=== PATIENT | male | born 1995 | race Caucasian/White ===

== ENCOUNTER 2018-06-08 18:36 | Emergency (ER) | payer MEDICARE, OTHER ==
[~2018-06-08] VITALS: Ht 180.3 cm; Wt 104.3 kg
[2018-06-08 18:40] VITALS: BP 151/76
--- NOTE | 2018-06-08 19:51 | PHYS DOC ---
Past Medical History Past Medical History: Other Additional Past Medical Histor: TBIk, tremors, explosive compulsive disorder Past Surgical History: Other Additional Past Surgical Histo: BRAIN SURGERY-2002 Alcohol Use: None Drug Use: None Adult General Chief Complaint Chief Complaint: LOWER EXT PAIN HPI HPI 22-year-old male presents to ER for complaints of right ankle and foot pain following an injury yesterday. Patient reports he was walking when he twisted his ankle and foot. Patient denies falling all to the ground. Patient reports he has had swelling and pain since the injury in his right lateral ankle into his foot. Patient took ibuprofen yesterday for pain denies any huom-ugb-[id number] medications today. Patient denies any other injuries. Patient states he has been ambulatory without assistive device. Review of Systems Review of Systems Constitutional: Denies fever. Denies head/neck/back pain. Musculoskeletal: Reports rt ankle/foot pain- reporting only injury Integument: Denies abrasions/bruising Neurologic: Denies focal weakness or sensory changes [] All other systems were reviewed and found to be within normal limits, except as documented in this note. Current Medications Current Medications Current Medications Medications (Trade) Dose Ordered Sig/Corinne Start Time Stop Time Status Last Admin Dose Admin Ibuprofen (Motrin) 600 mg 1X ONCE 06/08/18 20:15 06/08/18 20:16 DC 06/08/18 19:55 600 MG Allergies Allergies Allergies Coded Allergies Type Severity Reaction Last Updated Verified divalproex sodium Allergy Unknown 11/24/14 Yes Physical Exam Physical Exam Constitutional: Well developed, well nourished, no acute distress, non-toxic appearance. [] HENT: Normocephalic, atraumatic Eyes: Pupils equal, conjunctiva normal, no discharge. [] Neck: Normal range of motion, no tenderness, supple Cardiovascular: Heart rate regular Lungs & Thorax: Resp. equal/nonlabored Skin: Warm, dry Back: No tenderness, full ROM Extremities: No cyanosis. 2+ dorsalis pedis/posterior tibial rt LE. Tender to palp. rt lateral malleolus into dorsal surface of rt foot. No calcaneus tenderness. Pt has decreased ROM of rt ankle. Swelling without ecchymosis dorsal surface of rt lateral foot Neurologic: Alert and oriented X 3, normal motor function, normal sensory function, no focal deficits noted. [] Psychologic: Affect normal, judgement normal, mood normal. [] Current Patient Data Vital Signs Vital Signs Date Time Temp Pulse Resp B/P (MAP) Pulse Ox O2 Delivery O2 Flow Rate FiO2 06/08/18 18:40 97.6 86 22 151/76 (101) 98 Room Air 97.6 EKG EKG [] Radiology/Procedures Radiology/Procedures PROCEDURE: ANKLE RIGHT 3V Right ankle 3 views 06/08/2018. Reason for exam: Pain after injury yesterday. No fracture or dislocation is seen at the ankle. There is no apparent joint narrowing. IMPRESSION: No acute findings at the ankle. Right foot 3 views: There is a transverse fracture of the proximal fifth metatarsal reaching the proximal articular surface. There is minimal displacement. No other fracture or dislocation is seen. IMPRESSION: Fifth metatarsal fracture. Electronically signed by: Margarito Nguyen Jr., MD (06/08/2018 8:24 PM) [facility] DICTATED and SIGNED BY: MARGARITO NGUYEN Jr, MD DATE: 06/08/182021 Course & Med Decision Making Course & Med Decision Making Pertinent Imaging studies reviewed. (See chart for details) 2030: Discussed x-ray results with patient and caseworker protective services at bedside with ankle x-ray showing no acute findings for fracture or dislocation. Right foot x- ray with report of "transverse fracture of the proximal fifth metatarsal reaching the proximal articular surface". Discussed plans for Jose wrap and postop shoe to right foot. Crutches were discussed however patient is not wanting to use crutches. Patient has been ambulatory since injury yesterday without assistive device. Patient remains neuro and vascular intact in right lower extremity. Patient was given dose of ibuprofen while in the ER. Will provide referral for orthopedic doctor with discharge paperwork and patient and structural biologist was advised on need to call tomorrow to schedule an appointment for follow-up this week. Education provided on signs and symptoms to return to ER for an discharge instructions were discussed. At time of discussion patient was in no visible distress. Dragon Disclaimer Dragon Disclaimer This electronic medical record was generated, in whole or in part, using a voice recognition dictation system. Departure Departure Impression: Primary Impression: Foot fracture, right Additional Impression: Right ankle injury Disposition: HOME, SELF-CARE Condition: STABLE Referrals: CLAUDIA HICKEY MD (PCP) Patient Instructions: Ankle Sprain, Elastic Bandage and RICE, Foot Fracture Additional Instructions: Tylenol and/or ibuprofen as needed for pain relief as directed on container. Call as soon as possible and schedule follow-up with orthopedic doctor for further care/treatment. Dr. Sanchez [phone]. Problem Qualifiers SHANIKA MORRISSEY APRN Jun 08, 2018 19:51
[2018-06-08] MEDS ORDERED: IBUPROFEN 600 MG TABLET. PO ONE (20:15)
--- NOTE | 2018-06-08 20:28 | RAD ---
Right ankle 3 views 06/08/2018. Reason for exam: Pain after injury yesterday. No fracture or dislocation is seen at the ankle. There is no apparent joint narrowing. IMPRESSION: No acute findings at the ankle. Right foot 3 views: There is a transverse fracture of the proximal fifth metatarsal reaching the proximal articular surface. There is minimal displacement. No other fracture or dislocation is seen. IMPRESSION: Fifth metatarsal fracture. Electronically signed by: Cale Nguyen Jr., MD (06/08/2018 8:24 PM) [facility]
--- NOTE | 2018-06-08 20:28 | RAD ---
Right ankle 3 views 06/08/2018. Reason for exam: Pain after injury yesterday. No fracture or dislocation is seen at the ankle. There is no apparent joint narrowing. IMPRESSION: No acute findings at the ankle. Right foot 3 views: There is a transverse fracture of the proximal fifth metatarsal reaching the proximal articular surface. There is minimal displacement. No other fracture or dislocation is seen. IMPRESSION: Fifth metatarsal fracture. Electronically signed by: Cale Nguyen Jr., MD (06/08/2018 8:24 PM) [facility]
[2018-12-19] MEDS ORDERED: NAPR-514 PO (14:43)
[2018-12-19] MEDS ORDERED: PENI500T PO (14:43)
== END 2018-06-08 21:07 | disposition home or self-care (01) ==
LOC: ER 18:36
DX: S92.351A Displaced fracture of fifth metatarsal bone, right foot, initial encounter for closed fracture (principal); S99.911A Unspecified injury of right ankle, initial encounter; Z88.8 Allergy status to other drugs, medicaments and biological substances; X50.1XXA Overexertion from prolonged static or awkward postures, initial encounter; Y93.89 Activity, other specified; Y92.89 Other specified places as the place of occurrence of the external cause; Y99.8 Other external cause status
CPT/HCPCS: 73610; 73630; 99283

== ENCOUNTER → 2019-08-06 | Outpatient (CLI) | payer MEDICARE, OTHER ==
[2018-12-19 14:25] VITALS: BP 136/74
[~2019-08-06] MED LIST: NAPR-514 PO; PENI500T PO
--- NOTE | 2019-08-06 13:21 | KCIC ---
AP and Lateral Views of the Chest 08/06/2019 12:00 AM Indication: Dyspnea Comparison: None Findings: There is no focal consolidation or infiltrate identified. The cardiomediastinal silhouette is within normal limits. There is no evidence of pneumothorax or pleural effusion. No acute osseous abnormalities are identified. Impression: No evidence of acute cardiopulmonary process. Electronically signed by: Aroldo Garland MD (08/06/2019 1:18 PM) [id number]
== END | disposition home or self-care (01) ==
LOC: KCIC 09:45
PROVIDERS: ATTEND Family Medicine
DX: R06.00 Dyspnea, unspecified (principal)
CPT/HCPCS: 71046

== ENCOUNTER → 2019-09-15 | Outpatient (CLI) | payer MEDICARE, OTHER ==
[2018-12-19 14:25] VITALS: BP 136/74
[~2019-09-15] MED LIST changes: +ZOLPIDEM 5 MG TABLET. PO ONE
--- NOTE | 2019-09-16 18:12 | SLEEP ---
DATE OF STUDY: 09/16/2019 REFERRING PHYSICIAN: Ese Rascon MD PRIMARY CARE PHYSICIAN: Yifan Peterson MD The patient is a 24-year-old who weighs 254 pounds with a BMI of 38. The patient's [place] score was 10. The patient underwent split night study performed at [facility]. During the night study, the patient spent 446 minutes in bed and slept for 392 minutes with a sleep efficiency of 88%. Sleep latency was 16 minutes with a REM latency of 178 minutes. Sleep architecture showed normal stage 1 and stage 2 sleep, increased slow wave and normal REM sleep. During the initial diagnostic portion of the study, the patient slept for 77 minutes. During that time, there were 1 obstructive apnea, 4 mixed apneas, 1 central apnea and 54 hypopneas. The patient's AHI was 47 per hour with a supine AHI of 47 per hour. REM sleep was not seen during the diagnostic portion. EKG monitoring revealed an average heart rate of 77 beats per minute. No sustained arrhythmias observed. No clinically significant PLM seen. Nocturnal oximetry study revealed an average oxygen saturation of 88% with the lowest of 81%. 35% of the time, oxygen saturation remained between 80% and 89%. The patient met the criteria for CPAP initiation. It was started at 7 cm water and titrated up to 9 cm water. At the final pressure, the patient slept for 257 minutes including supine and REM sleep. The patient's AHI was reduced to 1 per hour and oxygen saturation remained above 90%. The patient used a small sized full face mask. IMPRESSION: 1. Severe obstructive sleep apnea at an AHI of 47 per hour. 2. Nocturnal hypoxia secondary to obstructive sleep apnea, but resolved with CPAP. 3. No clinically significant periodic limb movements. RECOMMENDATIONS: 1. CPAP at 9 cm water completely eliminated the patient's sleep apnea and should be used on a nightly basis. 2. Follow up in 4-6 weeks to assess compliance with CPAP and to document clinical improvement. 3. Weight loss is strongly advised. 4. Avoid [employer] APPRENTICE depressants. 5. Cautioned regarding driving until symptoms of sleep apnea resolve with the use of CPAP. ALONSO CHURCH MD DR: CHARLES/melchor JOB#: [id number] / [id number] ESE Preston MD, TERRY MD
== END | disposition home or self-care (01) ==
LOC: SLPLAB 19:22
PROVIDERS: ATTEND Internal Medicine Pulmonary Disease
DX: G47.33 Obstructive sleep apnea (adult) (pediatric) (principal); R09.02 Hypoxemia
CPT/HCPCS: 95810

== ENCOUNTER → 2019-10-06 | Outpatient (CLI) | payer MEDICARE, OTHER ==
[2018-12-19 14:25] VITALS: BP 136/74
[~2019-10-06] MED LIST changes: -ZOLPIDEM 5 MG TABLET. PO ONE
--- NOTE | 2019-10-06 10:02 | CARD ---
MR#: [id number] Date of Study: 10/06/2019 Ordering Physician: CLAUDIA HICKEY, Referring Physician: CLAUDIA HICKEY, Tech: Magalys Hernandez [facility] APPROVED REPORT EXAM: Two-dimensional and M-mode echocardiogram with Doppler and color Doppler. Other Information Quality : Good INDICATION Dyspnea 2D DIMENSIONS RVDd2.5 (2.9-3.5cm)Left Atrium(2D)3.8 (1.6-4.0cm) IVSd1.3 (0.7-1.1cm)Aortic Root(2D)2.8 (2.0-3.7cm) LVDd5.0 (3.9-5.9cm)LVOT Diameter2.2 (1.8-2.4cm) PWd1.2 (0.7-1.1cm)LVDs3.8 (2.5-4.0cm) FS (%) 23.3 %SV53.8 ml LVEF(%)46.4 (>50%) Aortic Valve AoV Peak Hernando.138.9cm/sAoV VTI25.6cm AO Peak GR.7.7mmHgLVOT Peak Hernando.109.9cm/s AO Mean GR.4mmHgAVA (VMAX)2.87cm2 DARIO (VTI)3.10cm2 Mitral Valve MV E Unewljnq06.6cm/sMV DECEL XJML686ep MV A Mutjhyyt60.3cm/sE/A Ratio2.2 Tricuspid Valve TR P. Yefrhvcg777jx/sRAP NIDIXYES2qpCy TR Peak Gr.37amOnTOZC98kmDr Pulmonary Vein S1 Odwxhbno16.6cm/sD2 Ckpaqhod75.0cm/s LEFT VENTRICLE The left ventricle is normal size. There is mild concentric left ventricular hypertrophy. Left ventri taisha systolic function is normal. The Ejection Fraction is 55%. There is normal LV segmental wall dylan on. RIGHT VENTRICLE The right ventricle is normal size. The right ventricular systolic function is normal. ATRIA The left atrium size is normal. The right atrium size is normal. The interatrial septum is intact wit h no evidence for an atrial septal defect or patent foramen ovale as noted on 2-D or Doppler imaging. AORTIC VALVE The aortic valve is normal in structure and function. Doppler and Color Flow revealed no significant aortic regurgitation. There is no significant aortic valvular stenosis. MITRAL VALVE The mitral valve is normal in structure and function. There is no evidence of mitral valve prolapse. There is no mitral valve stenosis. Doppler and Color Flow revealed no mitral valve regurgitation note d. TRICUSPID VALVE The tricuspid valve is normal in structure and function. Doppler and Color Flow revealed trace tricus pid regurgitation. There is mild pulmonary hypertension. The PA pressure was estimated at 35 mmHg. Th ere is no tricuspid valve stenosis. PULMONIC VALVE The pulmonic valve is not well visualized. Doppler and Color Flow revealed no pulmonic valvular regur gitation. There is no pulmonic valvular stenosis. GREAT VESSELS The aortic root is normal in size. The ascending aorta is not well seen. The IVC is normal in size an d collapses >50% with inspiration. PERICARDIAL EFFUSION There is no evidence of significant pericardial effusion. Critical Notification Critical Value: No <Conclusion> Left ventricle systolic function is normal. The Ejection Fraction is 55%. There is normal LV segmental wall motion. Doppler and Color Flow revealed trace tricuspid regurgitation. The PA pressure was estimated at 35 mmHg. There is no evidence of significant pericardial effusion. Signed by : [facility], Electronically Approved : 10/06/2019 10:01:40
== END | disposition home or self-care (01) ==
LOC: ECHO 08:55
PROVIDERS: ATTEND Family Medicine
DX: I51.7 Cardiomegaly (principal); I27.20 Pulmonary hypertension, unspecified
CPT/HCPCS: 93306

== ENCOUNTER 2020-08-19 15:13 | Emergency (ER) | payer MEDICARE, OTHER ==
[~2020-08-19] VITALS: Ht 167.6 cm; Wt 109.0 kg
[2020-08-19 15:52] VITALS: BP 139/79
[2020-08-19] MEDS ORDERED: IBUPROFEN 200 MG TABLET. PO ONE (16:00)
--- NOTE | 2020-08-19 16:05 | RAD ---
XR HAND_LEFT 3 VIEWS Clinical Indication: Reason: injury left hand, punched wall / Spl. Instructions: / History: Comparison: None. Findings: There is acute traumatic fracture of the distal neck of the fifth metacarpal. The distal fracture fra gment demonstrates minimal volar angulation. There is mild soft tissue swelling. There is lucency at the tip of the fourth distal tuft. Correlate to any point tenderness. Finding may be subacute nondisplaced fracture or congenital variant. There is no dislocation. There is negative ulnar variance. Mineralization is normal. IMPRESSION: Acute traumatic boxer's fracture. Electronically signed by: Pavan Malhotra MD (08/19/2020 4:02 PM) [id number]
[2020-08-19] MEDS ORDERED: HYDR-2761 PO (16:32)
[2020-08-19] MEDS ORDERED: IBUP-1007 PO (16:32)
--- NOTE | 2020-08-19 16:32 | PHYS DOC ---
Past Medical History Past Medical History: Other Additional Past Medical Histor: TBIk, tremors, explosive compulsive disorder (JACQUELINE HAMPTON TAKE UP SUPERVISOR) Past Surgical History: Other Additional Past Surgical Histo: BRAIN SURGERY-2002 (JACQUELINE HAMPTON APRN) Smoking Status: Current Every Day Smoker Alcohol Use: Occasionally Drug Use: None (JACQUELINE HAMPTON APRN) General Adult EDM: Chief Complaint: HAND PROBLEM HPI: HPI: Patient is a 25 year old male who presents with got irritated at his roommate and punched a wall with left hand. Patient did not take any pain medication prior to coming. He states he cannot make a fist due to pain. Patient can wiggle his fingers but states it is very painful at the fourth knuckle on the dorsal hand. He has full range of motion of the left wrist but there is no swelling or redness. I had him take off his wedding ring. There is no joint laxity or deformities. 1+ hand swelling on the left dorsal hand at the fourth and fifth knuckle. He rates his pain a nonradiating sharp 9 out of 10. (JACQUELINE HAMPTON TAKE UP SUPERVISOR) Review of Systems: Review of Systems: Constitutional: Denies fever or chills. [] Eyes: Denies change in visual acuity. [] HENT: Denies nasal congestion or sore throat. [] Respiratory: Denies cough or shortness of breath. [] Cardiovascular: Denies chest pain. + Left dorsal hand edema. [] GI: Denies abdominal pain, nausea, vomiting, bloody stools or diarrhea. [] : Denies dysuria. [] Musculoskeletal: Denies back pain. + Left hand joint pain. [] Integument: Denies rash. [] Neurologic: Denies headache, focal weakness or sensory changes. [] Endocrine: Denies polyuria or polydipsia. [] Lymphatic: Denies swollen glands. [] Psychiatric: Denies depression or anxiety. [] (JACQUELINE HAMPTON TAKE UP SUPERVISOR) Heart Score: C/O Chest Pain: No Risk Factors: Risk Factors: DM, Current or recent (<one month) smoker, HTN, HLP, family hist ory of CAD, obesity. Risk Scores: Score 0 - 3: 2.5% MACE over next 6 weeks - Discharge Home Score 4 - 6: 20.3% MACE over next 6 weeks - Admit for Clinical Observation Score 7 - 10: 72.7% MACE over next 6 weeks - Early Invasive Strategies (JACQUELINE HAMPTON APRN) Current Medications: Current Medications Medications (Trade) Dose Ordered Sig/Corinne Start Time Stop Time Status Last Admin Dose Admin Ibuprofen (Motrin) 600 mg 1X ONCE 08/19/20 16:00 08/19/20 16:01 DC 08/19/20 16:03 600 MG (JACQUELINE HAMPTON APRN) Allergies: Allergies: Allergies Coded Allergies Type Severity Reaction Last Updated Verified divalproex sodium Allergy Unknown 11/24/14 Yes (JACQUELINE HAMPTON APRN) Physical Exam: PE: Constitutional: Well developed, well nourished, no acute distress, non-toxic appearance. [] HENT: Normocephalic, atraumatic, bilateral external ears normal, oropharynx moist, no oral exudates, nose normal. [] Eyes: PERRLA, EOMI, conjunctiva normal, no discharge. [] Neck: Normal range of motion, no tenderness, supple, no stridor. [] Cardiovascular:Heart rate regular rhythm, no murmur [] Lungs & Thorax: Bilateral breath sounds clear to auscultation [] Abdomen: Bowel sounds normal, soft, no tenderness, no masses, no pulsatile masses. [] Skin: Warm, dry, no erythema, no rash. [] Back: No tenderness, no CVA tenderness. [] Extremities: Left dorsal hand fourth and fifth knuckle tenderness, no cyanosis, no clubbing, fourth and fifth finger ROM not intact, dorsal hand at fourth and fifth knuckle 2+ edema. [] Neurologic: Alert and oriented X 3, normal motor function, normal sensory function, no focal deficits noted. [] Psychologic: Affect normal, judgement normal, mood normal. [] (JACQUELINE HAMPTON APRN) Current Patient Data: Vital Signs: Vital Signs Date Time Temp Pulse Resp B/P (MAP) Pulse Ox O2 Delivery O2 Flow Rate FiO2 08/19/20 15:52 98.2 85 16 139/79 (99) 98 Room Air 98.2 (JACQUELINE HAMPTON APRN) EKG: EKG: [] ([facility]) Radiology/Procedures: Radiology/Procedures: [] Impression: [facility] [address] [place] [address] IMAGING REPORT Signed PATIENT: ELISA BROWN ACCOUNT: [id number] : 1995 LOCATION: ER AGE: 25 SEX: M EXAM STATUS: REG ER ORD. PHYSICIAN: JACQUELINE HAMPTON APRN REASON: injury left hand, punched wall PROCEDURE: HAND LEFT 3V XR HAND_LEFT 3 VIEWS Clinical Indication: Reason: injury left hand, punched wall / Spl. Instructions: / History: Comparison: None. Findings: There is acute traumatic fracture of the distal neck of the fifth metacarpal. The distal fracture fragment demonstrates minimal volar angulation. There is mild soft tissue swelling. There is lucency at the tip of the fourth distal tuft. Correlate to any point tenderness. Finding may be subacute nondisplaced fracture or congenital variant. There is no dislocation. There is negative ulnar variance. Mineralization is normal. IMPRESSION: Acute traumatic boxer's fracture. Electronically signed by: Pavan Malhotra MD (08/19/2020 4:02 PM) [id number] DICTATED and SIGNED BY: PAVAN MALHOTRA MD DATE: 08/19/20 [id number] (JACQUELINE HAMPTON APRN) Course & Med Decision Making: Course & Med Decision Making Pertinent Labs and Imaging studies reviewed. (See chart for details) See HPI. Tenderness at the left dorsal hand at the fourth and fifth knuckle area radial pulse strong present. Cap refill less than 2 seconds. Full range of motion of the wrist. Fourth and fifth finger are painful to wiggle. Sensations intact. No abrasions or lacerations. No bleeding is seen at this time. Patient has a boxer's fracture. Patient is placed in a ulnar gutter splint. Splint assessment: Neurovascularly intact post splint replacement with good fit. Patient's extremity symptoms have stabilized well they have been evaluated in the department and are appropriate for outpatient follow-up. No evidence of compartment syndrome, neurologic injury, vascular injury, open joint, open fracture, tendon laceration, or foreign body. [] (JACQUELINE HAMPTON APRN) Dragon Disclaimer: Dragon Disclaimer: This electronic medical record was generated, in whole or in part, using a voice recognition dictation system. (JACQUELINE HAMPTON APRN) Departure Departure Impression: Primary Impression: Jasmyne fracture Qualified Codes: S62.339A - Displaced fracture of neck of unspecified metacarpal bone, initial encounter for closed fracture Disposition: 01 DC HOME SELF CARE/HOMELESS Condition: STABLE Referrals: CLAUDIA HICKEY MD (PCP) ANDRES WHELAN MD Patient Instructions: Rain's Fracture-SportsMed Additional Instructions: Follow-up with orthopedic doctor as soon as possible. Take pain medication and use ice and elevation to help with pain and swelling. If your fingers start to turn purple or the pain is intolerable you can try to unwrap it and rewrap it looser. If that does not help return to the emergency room. Scripts Hydrocodone Bit/Acetaminophen (HYDROCODONE-APAP 5-325 ) 1 Tab Tablet 1 TAB PO PRN Q6HRS PRN for PAIN, #10 TAB 0 Refills Prov: JACQUELINE HAMPTON APRN 08/19/20 Ibuprofen (IBUPROFEN) 600 Mg Tablet 600 MG PO PRN Q6HRS PRN for INFLAMMATION, #26 TAB Prov: JACQUELINE HAMPTON APRN 08/19/20 Attending Signature Attending Signature I have reviewed the PA/WELT BEATER's note and plan of care. I was available for consultation as needed during the patient's visit in the emergency department. I agree with the clinical impression, plan, and disposition. (JAIME VALDEZ DO) JACQUELINE HAMPTON APRN Aug 19, 2020 16:32 JAIME VALDEZ DO Aug 19, 2020 18:54
== END 2020-08-19 16:53 | disposition home or self-care (01) ==
LOC: ER 15:13
DX: S62.339A Displaced fracture of neck of unspecified metacarpal bone, initial encounter for closed fracture (principal); F17.200 Nicotine dependence, unspecified, uncomplicated; Z87.820 Personal history of traumatic brain injury; Z88.8 Allergy status to other drugs, medicaments and biological substances; W22.01XA Walked into wall, initial encounter; Y93.89 Activity, other specified; Y92.89 Other specified places as the place of occurrence of the external cause; Y99.8 Other external cause status
CPT/HCPCS: 29125; 73130; 99283